=== PATIENT | male | born 1955 | race Caucasian/White ===

== ENCOUNTER 2023-08-15 15:52 | Emergency (ER) | payer BC, SELFPAY ==
--- NOTE | 2023-08-15 15:57 | ED.URI ---
HPI - URI/Sore Throat General Chief Complaint: Upper Respiratory Infection Stated Complaint: cough Time Seen by Provider: 08/15/23 15:57 Source: patient Mode of arrival: ambulatory Limitations: no limitations History of Present Illness HPI Narrative: Patient is a 5-year-old male who presents with 2-3 weeks of dry persistent cough. States he still is able to sleep at night. Denies any shortness of breath or chest pain. Denies any fever, chills, nausea, vomiting, diarrhea. Has not been taking anything for symptoms. Does have history of pneumonia. Related Data Home Medications Medication Instructions Recorded Confirmed gabapentin 600 mg tablet mg 08/15/23 Allergies Allergy/AdvReac Type Severity Reaction Status Date / Time No Known Allergies Allergy Verified 08/15/23 16:10 Review of Systems Review of Systems: All systems reviewed & are unremarkable except as noted in HPI and below Constitutional: Constitutional: Denies body ache(s), Denies chills, Denies fatigue, Denies fever(s), Denies headache(s), Denies malaise and Denies weakness Eyes: Eyes: Denies blurry vision, Denies itchy eyes and Denies loss of vision ENT: Denies otalgia, Denies headache(s), Denies nasal congestion, Denies sinus pain and Denies sore throat Cardiovascular: Cardiovascular: Denies chest pain, Denies irregular heart rhythm and Denies dyspnea Respiratory: Respiratory: Reports cough and Denies dyspnea Gastrointestinal: Gastrointestinal: Denies abdominal pain, Denies diarrhea, Denies nausea and Denies vomiting Musculoskeletal: Musculoskeletal: Denies back pain, Denies myalgias and Denies arthralgias Integumentary/Breasts: Skin/Breast: Denies pruritus and Denies rash Neurologic: Denies headache(s), Denies loss of vision and Denies weakness Psychiatric: Psychiatric: Reports no additional psychiatric complaints Endocrine: Endocrine: Denies fatigue Allergic/Immunologic: Allergic/Immunologic: Denies itchy eyes PMFSH Comments At time of signature, agree with nursing past medical, surgical, social and family history. There is no relevant family history pertinent to the presenting complaint. Exam Const: General: cooperative, healthy appearing, comfortable, no acute distress and well nourished Nutritional Appearance: well nourished Orientation/consciousness: patient oriented x3 Limitations: no limitations HENMT: Head: normal to inspection, normocephalic and atraumatic Ears: hearing grossly normal bilaterally, external ears normal, TM's normal bilaterally, EAC's normal and no periauricular adenopathy Face/Nose/Sinus: Normal external nose present, Normal nasal mucous membranes and turbinates present, normal facial exam, sinuses nontender and face symmetric Face and sinus: normal facial exam, sinuses nontender and face symmetric Mouth: Yes Normal oral and palatal mucosa present, Yes lip normal, Yes tongue normal, Yes Normal salivary glands and ducts present, Yes oropharynx normal and Yes moist mucous membranes Teeth and gingiva: dentition normal Throat: posterior oropharynx normal, tonsils normal and uvula midline Eyes: General: appearance normal, both eyes and all related structures Alignment and Position: alignment normal and position normal Periorbital: periorbital findings normal Eyelids: eyelids normal Pupils: Equal, round and reactive pupils present Neck: Neck: normal visual inspection, full ROM, no lymphadenopathy and supple Chest: Chest palpation & inspection: normal inspection of the chest and normal palpation of entire chest wall Resp: Effort & Inspection: normal respiratory effort and able to speak in complete sentences Auscultation: clear to auscultation bilaterally, no crackles, no rales, no rhonchi and no wheezes Cardio: Rate: regular rate Rhythm: regular rhythm Heart sounds: S1 normal heart sound present and S2 normal heart sound present GI: Inspection: normal to inspection Skin: General skin exam: normal color and no
[2023-08-15 16:09] VITALS: BP 126/75; PULSE 73; RESP 18; TEMP 36.8; O2SAT 97
[2023-08-15 16:11] VITALS: BP 126/75; PULSE 73; RESP 18; TEMP 36.8; O2SAT 97
== END 2023-08-15 16:23 | disposition home or self-care (01) ==
PROVIDERS: Emergency Provider Nurse Practitioner Family
DX: J20.9 Acute bronchitis, unspecified (principal)
CPT/HCPCS: 99213; G0463

== ENCOUNTER 2025-05-26 09:32 | Day surgery (SDC) | payer BC, SELFPAY ==
[2025-05-06 15:54] VITALS: BMI 28.0
[2025-05-26 10:24] VITALS: BP 134/80; PULSE 99; RESP 19; TEMP 36.3; O2SAT 99
[2025-05-26] MEDS: LACTATED RINGERS 1,000 ML 150 ML IV CONT (10:39)
--- NOTE | 2025-05-26 10:44 | WPDANESEPPF ---
Anes - Initial Pre Proc Eval Procedure: Operation Date: 05/26/25 13:30 Proposed Procedures p Screening Colonoscopy - Faisal Montano MD Date/Time: 05/26/25 10:44 Surgeon: Faisal Montano MD Pre Op Diagnosis: Encounter for screening for malignant neoplasm of Patient Data Age: 70 Gender: M Height: 1.78 m Weight: 87.9 kg Last Vital Signs Temp 36.3 C L 05/26/25 10:24 Pulse 99 05/26/25 10:24 Resp 19 05/26/25 10:24 BP 134/80 05/26/25 10:24 Pulse Ox 99 05/26/25 10:24 O2 Del Method Room Air 05/26/25 10:24 Allergies Allergy/AdvReac Type Severity Reaction Status Date / Time No Known Allergies Allergy Verified 05/26/25 10:22 Home Medications ?Medication ?Instructions ?Recorded ?Confirmed ?Type gabapentin 600 mg tablet 600 mg PO TID 30 days #90 tabs 08/15/23 05/06/25 Rx Patient hx anesthesia problems: none Family hx anesthesia problems: none Results Review: All pre-operative results and documents have been reviewed as part of the pre-operative evaluation. [facility] Past Medical History Medical History Neuropathy Surgical History Surgical History History of knee surgery right knee Meniscus repair History of hernia repair History of prostate surgery Social History Social History Smoking status: Never smoker Alcohol intake: never Substance use: never Lack of Transportation: No Lack of Food: Never True Current Housing: I Have Housing Concerned About Future Housing: No Difficulty Paying Gas/Electric Bills: No Difficulty Paying for Meds: No Currently Unemployed: No Education: Master's Degree or Higher Difficulty w/ Childcare or Family Care: No Living arrangements: with family Additional living arrangements comments: with sp Anes - Eval Final PreProcedure Day of Procedure 05/26/25 10:44 Patient weight: overweight Heart: regular rate and rhythm Lungs: clear to auscultation Airway: Mallampati scale class II Neurological: alert and oriented Last oral intake: >/= 8 hours ASA classification: II Emergent: no Anesthetic plan: proceed Anesthesia type and monitoring: general GIVS and standard monitoring Results Review: All pre-operative results and documents have been reviewed as part of the pre-operative evaluation. Informed Consent: The patient's anesthetic plan and its attendant risks and benefits were discussed with the patient/family/POA. Questions were solicited and answers provided to the satisfaction of the patient/family/POA.
--- NOTE | 2025-05-26 11:30 | P.HP_ITS ---
H&P: HPI History of Present Illness Date/Time: 05/26/25 11:30 Chief Complaint: History of colon polyps Narrative: The patient has a history of colonic polyps, the last colonoscopy was Review of Systems Review of Systems: All systems reviewed & are unremarkable except as noted in HPI and below PMFSH Past Medical History Medical History Neuropathy Surgical History Surgical History History of knee surgery right knee Meniscus repair History of hernia repair History of prostate surgery Social History Social History Smoking status: Never smoker Alcohol intake: never Substance use: never Lack of Transportation: No Lack of Food: Never True Current Housing: I Have Housing Concerned About Future Housing: No Difficulty Paying Gas/Electric Bills: No Difficulty Paying for Meds: No Currently Unemployed: No Education: Master's Degree or Higher Difficulty w/ Childcare or Family Care: No Living arrangements: with family Additional living arrangements comments: with sp Meds Home Medications and Allergies Home Medications ?Medication ?Instructions ?Recorded ?Confirmed ?Type gabapentin 600 mg tablet 600 mg PO TID 30 days #90 ta bs 08/15/23 05/06/25 Rx Allergies Allergy/AdvReac Type Severity Reaction Status Date / Time No Known Allergies Allergy Verified 05/26/25 10:22 Vital Signs Vital Signs - 24 hr 05/26/25 10:24 Temperature 97.4 F L Pulse Rate 99 Respiratory Rate 19 Blood Pressure 134/80 Pulse Oximetry 99 Oxygen Delivery Room Air Exam Const: General: cooperative and healthy appearing Resp: Effort & Inspection: normal respiratory effort and able to speak in complete sentences Auscultation: clear to auscultation bilaterally Cardio: Rate: regular rate Rhythm: regular rhythm GI: Inspection: normal to inspection GI Palp: No No hepatosplenomegaly present Auscultation: normal bowel sounds Rectal Exam: deferred Skin: General skin exam: normal color Psych: Appearance: grossly normal Mental Status: mental status grossly normal Assessment and Plan Assessment and plan (1) History of colonic polyps: Code(s): Z86.0100 - Personal history of colon polyps, unspecified Status: Acute Assessment and Plan: The patient is deemed a good candidate for the procedure. Consent signed. Will proceed.
--- NOTE | 2025-05-26 11:51 | S_PTH ---
PATIENT: Anuj Patrick LOC: [facility] #:[id number] AGE/SX: 70/M ROOM: RE05/26/[address]: Faisal Montano MD : 1955 BED: DIS: 05/26/2025 SPEC #: [id number] RECD: 05/26/25 13:07 STATUS: SHAYLA REJose Rafael #: [id number] JAN: 05/26/25 11:[address]: Faisal Montano DEPT: [facility] Surgical RECD BY: Lucrecia George ENTERED: 05/26/25 13:08 SP TYPE: Surgical OTHR DR: Lucinda Melendez, GLASS DEPOSITION TENDER Tissues: A - Colon Polypectomy Procedures: Hematoxylin and Eosin Stain Gross and Microscopic Level 4
[2025-05-26 11:52] VITALS: BP 107/59; PULSE 99; RESP 15; O2SAT 98
[2025-05-26 12:02] VITALS: BP 114/73; PULSE 75; RESP 20; O2SAT 100
[2025-05-26 12:12] VITALS: BP 120/78; PULSE 71; RESP 19; O2SAT 100
== END 2025-05-26 12:25 | disposition home or self-care (01) ==
PROVIDERS: PCP Nurse Practitioner; Referring Provider Nurse Practitioner; Visit Provider Internal Medicine Gastroenterology
PROC: 0DJD8ZZ Inspection of Lower Intestinal Tract, Via Natural or Artificial Opening Endoscopic (ICD-10-PCS; CPT 45378; principal; 2025-05-26 13:30)
DX: Z12.11 Encounter for screening for malignant neoplasm of colon (principal); K63.5 Polyp of colon
CPT/HCPCS: 45385; 88305; J2704; J7120

== ENCOUNTER 2025-06-02 17:41 | Observation (INO) | payer BC, SELFPAY ==
--- NOTE | ~2025-06-02 | MR_ITS ---
EXAMINATION: MR brain/brain stem wo/w con DATE: 06/03/2025 17:09 INDICATION: Left-sided visual deficits. TECHNIQUE: Magnetic resonance imaging (MRI) of the brain and brainstem was performed without and with 19 mL Multihance intravenous contrast. Sequences included sagittal and axial T1-weighted SE, axial diffusion-weighted FS SE, axial T2*-weighted GRE, axial T2-weighted FLAIR, and axial T2-weighted FSE. Postcontrast axial and coronal T1-weighted SE was obtained. Apparent diffusion coefficient (ADC) maps were created. COMPARISON: Head CT and CT angiogram dated 06/02/2025 FINDINGS: Tiny focus of restricted diffusion with associated increased T2 signal at the left lentiform nucleus consistent with an acute lacunar infarct. No intracranial hemorrhage or abnormal intracranial mass lesion. There is a nonspecific 3 mm focus of enhancement in the kraus matter along the deep margin of a sulcus in the left parieto-occipital region. No associated restricted diffusion, increased T2 signal or susceptibility artifact. There are no intraparenchymal signal abnormalities seen on the other pulse sequences. The ventricles are symmetric and normal in size. There are no abnormal extra-axial fluid collections. Flow voids are seen in the cerebral arteries on the T2-weighted sequences consistent with their expected patency. Mild mucosal thickening the bilateral ethmoid sinuses. Visualized orbits and soft tissues are unremarkable. IMPRESSION: 1. Very small acute lacunar infarct in the left lentiform nucleus. 2. Nonspecific single tiny 3 mm focus of enhancement in the kraus matter the deep margin of a sulcus in the left parieto-occipital region. Differential would include developmental venous anomaly, subacute infarction, demyelinating disease such as multiple sclerosis, infection or malignancy. Would favor the former given the absence of restricted diffusion or associated increased T2 signal/edema. Reviewed, dictated and finalized at location A. E DESIGNER IMPRESSION: 1. Very small acute lacunar infarct in the left lentiform nucleus. 2. Nonspecific single tiny 3 mm focus of enhancement in the kraus matter the abby p margin of a sulcus in the left parieto-occipital region. Differential would i nclude developmental venous anomaly, subacute infarction, demyelinating disease such as multiple sclerosis, infection or malignancy. Would favor the former gi ashanti the absence of restricted diffusion or associated increased T2 signal/edema .
--- NOTE | ~2025-06-02 | CT_ITS ---
EXAMINATION: CT angiogram brain, carotids: DATE: 06/02/2025 INDICATION: 70-year-old carotid blockage. Visual disturbance. TECHNIQUE: Initial precontrast CT head was performed followed by CT angiogram of head and neck with 100 cc of contrast. Multiplanar and 3-D reconstruction obtained. COMPARISON: None. FINDINGS: No acute bleed on the precontrast CT. No space-occupying lesions or ventriculomegaly. No midline shift. Vertebral arteries are patent in the neck on both sides. Dominant size of the left vertebral artery. Mild atherosclerotic disease predominantly noncalcified plaque at the carotid bulbs on both sides producing less than 50% diameter narrowing. No evidence of hemodynamically significant disease of the common and internal carotid arteries in the neck. Vertebral basilar arteries are patent at the skull base. No obstruction of the intracranial portion of internal carotid arteries are seen. Posterior cerebral arteries are patent on both sides. Right posterior communicating artery is visualized. Anterior cerebral arteries are patent. Middle cerebral arteries are patent. Dural venous sinuses are patent. IMPRESSION: 1. No acute intracranial findings in the precontrast CT scan. 2. Patent vertebral arteries in the neck. Mild atherosclerotic disease producing less than 50% diameter narrowing of the internal carotid arteries on both sides. 3. No obstructive lesions of major arteries of [place]. Dural venous sinuses are patent. Reviewed, dictated and finalized at location T. ITIONING MACHINE OPERATOR IMPRESSION: 1. No acute intracranial findings in the precontrast CT scan. 2. Patent vertebral arteries in the neck. Mild atherosclerotic disease producin g less than 50% diameter narrowing of the internal carotid arteries on both gregory es. 3. No obstructive lesions of major arteries of [place]. Dural venous s inuses are patent.
[2025-06-02 17:43] VITALS: BP 157/85; PULSE 67; RESP 16; TEMP 36.4; O2SAT 100
--- NOTE | 2025-06-02 18:31 | ED.EYEPROB ---
HPI - Eye Problem General Chief complaint: Eye Problems <Ela Campos APRN - Last Filed: 06/02/25 22:40> Stated complaint: occlusion to retina <Ela Campos APRN - Last Filed: 06/02/25 22:40> Time Seen by Provider: 06/02/25 18:06 <Ela Campos APRN - Last Filed: 06/02/25 22:40> History of Present Illness HPI Narrative: Patient is 70-year-old male who presents to the ER with left eye blurriness. He reports his blurriness started this morning around 9:00 a.m.. Patient reports he went to the eye doctor who advised him to come to the ER for further evaluation. He reports his eye doctor had concerns for an occlusion. 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 He reports he does not have a primary care provider at this time. Patient denies any history of diabetes or hypertension and takes no daily medication. He denies any headache, dizziness, nausea/vomiting, or numbness/tingling in his extremities. <Ela Campos APRN - Last Filed: 06/02/25 22:40> Related Data Home medications: Home Medications ?Medication ?Instructions ?Recorded ?Confirmed ?Last Taken ?Type No Home Medications 06/03/25 06/03/25 Unknown History <Ela Campos APRN - Last Filed: 06/02/25 22:40> Allergies/adverse reactions: Allergies Allergy/AdvReac Type Severity Reaction Status Date / Time No Known Allergies Allergy Verified 06/03/25 00:41 <Ela Campos APRN - Last Filed: 06/02/25 22:40> Review of Systems Review of Systems: All systems reviewed & are unremarkable except as noted in HPI and below <Ela Campos APRN - Last Filed: 06/02/25 22:40> PMFSH Past Medical History Medical History: Medical History Neuropathy <Ela Campos APRN - Last Filed: 06/02/25 22:40> Surgical History Surgical History: Surgical History History of knee surgery right knee Meniscus repair History of hernia repair History of prostate surgery <Ela Campos APRN - Last Filed: 06/02/25 22:40> Social History Social History: Social History Smoking status: Never smoker Alcohol intake: never Substance use: never Lack of Transportation: No Lack of Food: Never True Current Housing: I Have Housing Concerned About Future Housing: No Difficulty Paying Gas/Electric Bills: No Difficulty Paying for Meds: No Currently Unemployed: No Education: Master's Degree or Higher Difficulty w/ Childcare or Family Care: No Living arrangements: with family Additional living arrangements comments: with sp <Ela Campos APRN - Last Filed: 06/02/25 22:40> Exam Narrative: GENERAL: Well appearing, well-nourished, non-toxic, in no acute distress. HEAD: Normocephalic, atraumatic. NECK: Supple. No adenopathy, no masses. RESPIRATORY: Airway patent, respirations nonlabored. Clear to auscultation bilaterally, no rales, rhonchi, wheezing. CARDIOVASCULAR: Regular rate and rhythm without murmurs, rubs, or gallops. Peripheral pulses 2+ and equal bilaterally. ABDOMINAL: Soft, nontender, nondistended, no hepatosplenomegaly. Normoactive BS. MUSCULOSKELETAL: Moves all extremities. Strength/ROM intact without gross deformities. SKIN: Warm, dry, normal color. No rashes. NEURO: A&O X3. Speech clear. Cranial nerves II-XII intact. No ataxic movements. PSYCHIATRIC: Appropriate mood and affect. Normal interaction. <Ela Campos APRN - Last Filed: 06/02/25 22:40> Course ASSURANCE ENGINEER/PA Physician Supervision This visit was performed by both a physician and an APC. I performed all aspects of the MDM as documented. <Giorgi Osborne DO - Last Filed: 06/03/25 00:44> Vital Signs Vital signs: Vital Signs Temperature 97.6 F 06/02/25 17:43 Pulse Rate 67 06/02/25 17:43 Respiratory Rate 16 06/02/25 17:43 Blood Pressure 157/85 H 06/02/25 17:43 Pulse Oximetry 100 06/02/25 17:43 Oxygen Delivery Room Air 06/02/25 17:43 Temperature 96.6 F L 06/03/25 00:43 Pulse Rate 58 L 06/03/25 00:43 Respiratory Rate 16 06/03/25 00:43 Blood Pressure 135/78 06/03/25 00:43 Pulse Oximetry 98 06/03/25 00:43 Oxygen Delivery Room Air 06/02/25 17:43 <Ela Campos, PRIMER WATERPROOFING MACHINE ADJUSTER - Last Filed: 06/02/25 22:40> Vital Signs Temperature 97.6 F 06/02/25 17:43 Pulse Rate 67 06/02/25 17:43 Respiratory Rate 16 06/02/25 17:43 Blood Pressure 157/85 H 06/02/25 17:43 Pulse Oximetry 100 06/02/25 17:43 Oxygen Delivery Room Air 06/02/25 17:43 Temperature 96.6 F L 06/03/25 00:43 Pulse Rate 58 L 06/03/25 00:43 Respiratory Rate 16 06/03/25 00:43 Blood Pressure 135/78 06/03/25 00:43 Pulse Oximetry 98 06/03/25 00:43 Oxygen Delivery Room Air 06/02/25 17:43 <Giorgi Osborne, DO - Last Filed: 06/03/25 00:44> [facility] MDM Narrative Medical decision making narrative: Patient is 70-year-old male who presents to the ER with left eye blurriness. He reports his blurriness started this morning around 9:00 a.m.. Patient reports he went to the eye doctor who advised him to come to the ER for further evaluation. He reports his eye doctor had concerns for an occlusion. 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 He reports he does not have a primary care provider at this time. Patient denies any history of diabetes or hypertension and takes no daily medication. He denies any headache, dizziness, nausea/vomiting, or numbness/tingling in his extremities. Labs Ordered: CBC, CMP, UA, UDS, PTT, INR, ethanol Imaging Ordered: CTA brain/carotid Medications Ordered: Aspirin PO Results: Pt's CT scan indicates No acute intracranial findings in the precontrast CT scan. 2. Patent vertebral arteries in the neck. Mild atherosclerotic disease producing less than 50% diameter narrowing of the internal carotid arteries on both sides. 3. No obstructive lesions of major arteries of [place]. Dural venous sinuses are patent. Diagnosis: TIA, L visual changes Risks: HEART score, PECARN score, CURB-65 score Consults: 2214- Spoke with Dr. Love, who advised pt should be admitted to the hospital for further evaluation and treatment. He requests pt have an MRI and ECHO performed. 2229- Spoke with hospitalist, Dr. Mclain, who is in agreement with plan for admission. Pt will be admitted to the med/surg floor with tele. He will have an MRI, ECHO, lipid panel, and neurology consult ordered. MDM: Upon further discussion, pt reports his symptoms actually started last night. Results of imaging and lab work shared with patient. It was advised patient be admitted to the hospital for further evaluation and treatment. Patient verbalized understanding and are in agreement with plan. <Ela Campos APRN - Last Filed: 06/02/25 22:40> Differential Diagnosis Differential Diagnosis: TIA, CVA, hypertension, visual changes <Ela Campos APRN - Last Filed: 06/02/25 22:40> Lab Data [facility] Lab Attestation statement: I personally reviewed the patient's lab results. <Ela Campos APRN - Last Filed: 06/02/25 22:40> Result diagrams: 06/02/25 18:57 06/02/25 18:57 <Ela Campos APRN - Last Filed: 06/02/25 22:40> Labs: Lab Results 06/02/25 06/02/25 Range/Units 18:57 21:15 WBC 6.7 (4.5-10.0) K/mm3 RBC 4.51 L (4.6-6.20) M/mm3 Hgb 13.2 L (14.0-18.0) g/dL Hct 39.9 L (42.0-52.0) % MCV 88.5 (80-100) fl MCH 29.3 (26-34) pg MCHC 33.1 (32-36) g/dl RDW 12.2 (11.5-14.5) % Plt Count 189 (150-375) k/mm3 MPV 10.3 (7.4-10.4) fl Immature Gran % (Auto) 0.3 (0-0.5) % Neut % (Auto) 60.5 (45.5-73.1) % Lymph % (Auto) 26.7 (18.3-44.2) % [place] % (Auto) 9.9 H (2.6-8.5) % Eos % (Auto) 2.2 (0-4.4) % Baso % (Auto) 0.4 (0.2-1.2) % Lymph # (Auto) 1.79 (0.9-3.2) K/mm3 [place] # (Auto) 0.7 H (0.1-0.6) K/mm3 Eos # (Auto) 0.2 (0-0.3) K/mm3 Baso # (Auto) 0.0 (0.0-0.1) K/mm3 Abs Immat Gran (auto) 0.02 (0.00-0.031) K/mm3 Absolute Neuts (auto) 4.1 (1.3-6.7) K/mm3 Absolute Nucleated RBC 0.000 (0.0-0.012) K/mm3 Nucleated RBC % 0.0 (0.0-0.2) % PT 13.4 (11.1-14.7) Seconds INR 1.0 APTT 27.4 (22.3-36.8) Seconds Sodium 139 (137-145) mmol/L Potassium 4.3 (3.4-5.0) mmol/L Chloride 106 (98-107) mmol/L Carbon Dioxide 27 (22-30) mmol/L Anion Gap 6 (4-12) mmol/L BUN 21 H (9-20) mg/dL Creatinine 1.10 (0.7-1.3) mg/dL Estim Creat Clear Calc 56 ml/min Estimated GFR > 60 (59 - ) Glucose 108 (65-110) mg/dL Calcium 9.1 (8.4-10.2) mg/dL Total Bilirubin 0.3 (0.2-1.3) mg/dL AST 32 (17-59) U/L ALT 28 (6-50) U/L Alkaline Phosphatase 76 (38-126) U/L Total Protein 7.4 (6.3-8.2) g/dL Albumin 4.1 (3.5-5.1) g/dL Triglycerides 222 H (<150) mg/dL Cholesterol 194 (0-200) mg/dL LDL Cholesterol Direct 118 mg/dL HDL Direct 30 mg/dL Urine Color Yellow (Yellow) Urine Appearance Clear (Clear) Urine pH 5.0 (5.0-9.0) Ur Specific [place] > 1.045 H (1.001-1.035) Urine Protein Negative (Negative) mg/dL Urine Glucose (UA) Negative (Negative) mg/dL Urine Ketones Negative (Negative) mg/dL Ur Blood (Man) Negative (Negative) Urine Nitrate Negative (Negative) Urine Bilirubin Negative (Negative) Urine Urobilinogen 0.2 (<2.0) mg/dL Leukocyte Esterase Rfl Negative (Negative) RONNA/UL Urine Opiates Screen Negative (Negative) Urine Methadone Screen Negative (Negative) Ur Barbiturates Screen Negative (Negative) Ur Phencyclidine Scrn Negative (Negative) Ur Amphetamine Screen Negative (Negative) U Benzodiazepines Scrn Negative (Negative) Urine Cocaine Screen Negative (Negative) U Cannabinoids Screen Negative (Negative) Ethyl Alcohol < 10 (<10) mg/dL <Ela Campos, PRIMER WATERPROOFING MACHINE ADJUSTER - Last Filed: 06/02/25 22:40> Lab Results 06/02/25 06/02/25 Range/Units 18:57 21:15 WBC 6.7 (4.5-10.0) K/mm3 RBC 4.51 L (4.6-6.20) M/mm3 Hgb 13.2 L (14.0-18.0) g/dL Hct 39.9 L (42.0-52.0) % MCV 88.5 (80-100) fl MCH 29.3 (26-34) pg MCHC 33.1 (32-36) g/dl RDW 12.2 (11.5-14.5) % Plt Count 189 (150-375) k/mm3 MPV 10.3 (7.4-10.4) fl Immature Gran % (Auto) 0.3 (0-0.5) % Neut % (Auto) 60.5 (45.5-73.1) % Lymph % (Auto) 26.7 (18.3-44.2) % [place] % (Auto) 9.9 H (2.6-8.5) % Eos % (Auto) 2.2 (0-4.4) % Baso % (Auto) 0.4 (0.2-1.2) % Lymph # (Auto) 1.79 (0.9-3.2) K/mm3 [place] # (Auto) 0.7 H (0.1-0.6) K/mm3 Eos # (Auto) 0.2 (0-0.3) K/mm3 Baso # (Auto) 0.0 (0.0-0.1) K/mm3 Abs Immat Gran (auto) 0.02 (0.00-0.031) K/mm3 Absolute Neuts (auto) 4.1 (1.3-6.7) K/mm3 Absolute Nucleated RBC 0.000 (0.0-0.012) K/mm3 Nucleated RBC % 0.0 (0.0-0.2) % PT 13.4 (11.1-14.7) Seconds INR 1.0 APTT 27.4 (22.3-36.8) Seconds Sodium 139 (137-145) mmol/L Potassium 4.3 (3.4-5.0) mmol/L Chloride 106 (98-107) mmol/L Carbon Dioxide 27 (22-30) mmol/L Anion Gap 6 (4-12) mmol/L BUN 21 H (9-20) mg/dL Creatinine 1.10 (0.7-1.3) mg/dL Estim Creat Clear Calc 56 ml/min Estimated GFR > 60 (59 - ) Glucose 108 (65-110) mg/dL Calcium 9.1 (8.4-10.2) mg/dL Total Bilirubin 0.3 (0.2-1.3) mg/dL AST 32 (17-59) U/L ALT 28 (6-50) U/L Alkaline Phosphatase 76 (38-126) U/L Total Protein 7.4 (6.3-8.2) g/dL Albumin 4.1 (3.5-5.1) g/dL Triglycerides 222 H (<150) mg/dL Cholesterol 194 (0-200) mg/dL LDL Cholesterol Direct 118 mg/dL HDL Direct 30 mg/dL Urine Color Yellow (Yellow) Urine Appearance Clear (Clear) Urine pH 5.0 (5.0-9.0) Ur Specific [place] > 1.045 H (1.001-1.035) Urine Protein Negative (Negative) mg/dL Urine Glucose (UA) Negative (Negative) mg/dL Urine Ketones Negative (Negative) mg/dL Ur Blood (Man) Negative (Negative) Urine Nitrate Negative (Negative) Urine Bilirubin Negative (Negative) Urine Urobilinogen 0.2 (<2.0) mg/dL Leukocyte Esterase Rfl Negative (Negative) RONNA/UL Urine Opiates Screen Negative (Negative) Urine Methadone Screen Negative (Negative) Ur Barbiturates Screen Negative (Negative) Ur Phencyclidine Scrn Negative (Negative) Ur Amphetamine Screen Negative (Negative) U Benzodiazepines Scrn Negative (Negative) Urine Cocaine Screen Negative (Negative) U Cannabinoids Screen Negative (Negative) Ethyl Alcohol < 10 (<10) mg/dL <Giorgi Osborne, - Last Filed: 06/03/25 00:44> Imaging Data Attestation: I personally reviewed and interpreted this imaging study as follows: <Ela Campos, PRIMER WATERPROOFING MACHINE ADJUSTER - Last Filed: 06/02/25 22:40> Radiologist's impression: ITS Impressions Head/Neck CTA 06/02/25 19:43 IMPRESSION: 1. No acute intracranial findings in the precontrast CT scan. 2. Patent vertebral arteries in the neck. Mild atherosclerotic disease producing less than 50% diameter narrowing of the internal carotid arteries on both sides. 3. No obstructive lesions of major arteries of [place]. Dural venous sinuses are patent. <Ela Campos, PRIMER WATERPROOFING MACHINE ADJUSTER - Last Filed: 06/02/25 22:40> ITS Impressions Head/Neck CTA 06/02/25 19:43 IMPRESSION: 1. No acute intracranial findings in the precontrast CT scan. 2. Patent vertebral arteries in the neck. Mild atherosclerotic disease producing less than 50% diameter narrowing of the internal carotid arteries on both sides. 3. No obstructive lesions of major arteries of [place]. Dural venous sinuses are patent. <Giorgi Osborne DO - Last Filed: 06/03/25 00:44> Discharge Plan Discharge Clinical Impression: TIA (transient ischemic attack), Changes in vision <Ela Campos, PRIMER WATERPROOFING MACHINE ADJUSTER - Last Filed: 06/02/25 22:40> Patient Disposition: Still a Patient <Ela Campos APRN - Last Filed: 06/02/25 22:40> Condition: Stable <Ela Campos APRN - Last Filed: 06/02/25 22:40>
--- NOTE | 2025-06-02 18:38 | ECG_ITS ---
Test Date: 2025-06-02 18:55:34 Measurements Intervals [place] Rate: 66 P: 52 IL: 188 QRS: 46 QRSD: 105 T: 6 QT: 378 QTc: 397 Interpretive Statements SINUS RHYTHM INCOMPLETE RIGHT BUNDLE BRANCH BLOCK MINIMAL Q WAVES- INFERIOR LEADS BASELINE ARTIFACT- I, II, AVR BORDERLINE ECG No previous ECG available for comparison Electronically Signed On 06-02-2025 19:54:09 [employer]IVER CAPTAIN by Vargas Dillon D.O.
[2025-06-02 19:13] LABS: Hematocrit 39.9 % (42.0-52.0); Hemoglobin 13.2 g/dL (14.0-18.0); Immature Granulocyte Percent A 0.3 % (0-0.5); Lymphocytes Absolute Auto 1.79 K/mm3 (0.9-3.2); Mean Corpuscular HGB Conc 33.1 g/dl (32-36); Mean Corpuscular Hemoglobin 29.3 pg (26-34); Mean Corpuscular Volume 88.5 fl (80-100); Nucleated Red Blood Cells Absolute Auto 0.000 K/mm3 (0.0-0.012); Nucleated Red Blood Cells Perc 0.0 % (0.0-0.2); Platelet Count Result 189 k/mm3 (150-375); Red Blood Count 4.51 M/mm3 (4.6-6.20); White Blood Count 6.7 K/mm3 (4.5-10.0)
[2025-06-02 19:23] LABS: INR 1.0; Prothrombin Time 13.4 Seconds (11.1-14.7)
[2025-06-02 19:24] LABS: Partial Thromboplastin Time 27.4 Seconds (22.3-36.8)
[2025-06-02 19:25] LABS: Alanine Aminotransferase 28 U/L (6-50); Albumin Level 4.1 g/dL (3.5-5.1); Alkaline Phosphatase 76 U/L (38-126); Anion Gap 6 mmol/L (4-12); Aspartate Amino Transferase 32 U/L (17-59); Bilirubin,Total 0.3 mg/dL (0.2-1.3); Blood Urea Nitrogen 21 mg/dL (9-20); Calcium 9.1 mg/dL (8.4-10.2); Carbon Dioxide 27 mmol/L (22-30); Chloride 106 mmol/L (98-107); Estimated CRCL calculation 56 ml/min; Estimated Glomerular Filt Rate > 60; Glucose 108 mg/dL (65-110); Potassium 4.3 mmol/L (3.4-5.0); Sodium 139 mmol/L (137-145); Total Protein 7.4 g/dL (6.3-8.2)
--- OUTSIDE RECORDS SUMMARY | 2025-06-02 21:12 | XMS_ITS | Patient Health Record ---
Author Organization [facility] Address [address] [facility] [address] [place] [address] Care Team Providers Care Nutrition Faculty Member Name Role Phone Mariposa Gray MD Primary Care Provider Mariposa Francis Unavailable [phone] ALLERGIES No Known Allergies REASON FOR REFERRAL No Information MEDICATIONS Medication SIG (Take, Route, Frequency, Duration) Notes Start Date End Date Status Gabapentin 600 MG TAKE ONE TABLET BY MOUTH THREE TIMES A DAY FOR 90 DAYS Orally three times daily for 30 days Active Atorvastatin Calcium 20 mg 1 tablet Orally Once a day for 90 Active Co Q 10 100 MG 1 capsule with a moraima l Orally Once a day Not-Taking Vitamin B12 100 MCG as directed Orally Active Aspirin 81 81 MG 1 tablet Orally Once a day for 30 day(s) Active Vitamin D-3 1000 UNIT 1 capsule Orally O nce a day Active IMMUNIZATIONS Vaccine Route Administration Date Status Comme nts FLU VACCINE NO PRESERV 3 & > Unknown 08/15/2016 Refused Fluvirin IM Intramuscular 03/26/2017 Administered Fluzone high dose (non Medicare) IM Intramuscular 06/26/2018 Administered Influenza HIST Unknown 03/26/2017 Administered Pneumococcal poly (Pneumovax 23) IM IM Intramuscular 12/01/2019 Administered PREVNAR 13 Unknown 08/15/2016 Refused PREVNAR 13 IM Intramuscular 11/12/2016 Administered Tdap IM Unknown 08/15/2011 Administered z Flu (Afluria IIV4 0.5ml single dose 3yr+) IM Intramuscular 04/27/2020 Administered z Flu (Flublok RIV4 0.5ml single dose syringe 18y+) IM Intramuscular 07/29/2019 Administered z Flu (Fluzone High Dose IIV4-HD 0.7 ml single dose 65+) IM Intramuscular 06/12/2022 Administered Zostavax Unknown 08/15/2016 Refused Zostavax SC Subcutaneous 11/12/2016 Administered Zoster Recombinant (Shingrix) IM IM Intramuscular 05/13/2020 Administered Zoster Recombinant (Shingrix) IM IM Intramuscular 08/15/2020 Administered SOCIAL HISTORY Tobacco Use: Social History Observation Description Date Details (start date - stop date) Never Smoker NA - NA Sex Assigned At : Social History Observation Description Sex Assigned At Unknown Smoking Question Answer Notes Are you a: never smoked Patient counseled on the reina gers of tobacco use and/or urged to quit: 03/26/2017 Audit-C Adult Question Answer Notes How often do you have a drink containing alcohol ? Never 0 points How many drinks did you have on a typical day when you were drinking? 1 or 2 - 0 points How often did you have 6 or more drinks on one o ccasion? 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) Active confirmed 412919173 Problem History of prostate cancer (Z85.46) Active confirmed 908164410 Problem Hyperparathyroidism (E21.3) Active confirmed 79271117 Problem Hypertriglyceridemia (E78.1) Active confirmed 261484220 Problem Prostate cancer (C61) Active confirmed Malignant tumor of prostate (125747829) Problem Hypoglycemia (E16.2) Active confirmed 3 11288143 Problem TIA (transient ischemic attack) (G45.9) Active confirmed 462649298 Problem Arterial insufficiency (I77.1) Active confirmed 823417709 Problem Stenosis of carotid artery, unspecified laterality (I65.29) Active confirmed 60183912 Problem Bilateral carotid artery stenosis (I65.23) Active confirmed 833204144 Problem Hypercholesterolemia (E78.00) Active confirmed Hypercholestero lemia (39133500) Problem Allergic rhinitis, unspecified seasonality, unspecified trigger (J30.9) Active confirmed 28485002 Problem Complaint of paresthesia (R20.2) Active confirmed 981961419 PLAN OF TREATMENT Pending Test Test Name Order Date URINALYSIS (URINE DIP) 12/01/2019 Hepatitis C Ab 11/12/2016 -CBC With Differential/Platelet* 017 -CBC With Differential/Platelet* 017 PTH, Intact 11/12/2016 Lipid Panel* 03/26/2017 -CMP (Comprehensive Metabolic Panel) 08/2016 -CMP (Comprehensive Metabolic Panel) Lyme IgG/IgM Ab 01/24/2022 US Arterial Low Ext Bilateral W STEPHEN 08/22 US Carotid Arteries Bilateral 06/26/2018 Vitamin B12 12/01/2019 -CBC with differential/platelet 09/25/19 18 -CMP (Comprehensive Metabolic Panel) 08/2017 Lipid Panel 09/24/2017 -Hemoglobin A1C* 09/24/2017 Lipid Panel* 06/26/2018 Lipid Panel* 12/01/2019 Lipid Panel* 08/15/2020 Lipid Panel* 11/14/2020 CMP (COMPREHENSIVE METABOLIC PANEL)* CMP (COMPREHENSIVE METABOLIC PANEL)* CMP (COMPREHENSIVE METABOLIC PANEL)* 02/2020 CMP (COMPREHENSIVE METABOLIC PANEL)* 08/2018 CBC with differential/platelet* 08/15/19 21 CBC with differential/platelet* 04/27/20 20 CBC with differential/platelet* 12/01/19 20 CBC with differential/platelet* 11/15/19 21 CBC (H/H, RBC, INDICES, WBC, PLT) 2018 PSA* 06/26/2018 PSA* 12/01/2019 PSA* 11/14/2020 PSA* 08/15/2020 TSH W/REFLEX TO FT4* 12/01/2019 Insurance Providers Payer Name Payer Address Payer Phone Subscriber Number Group Number Insured Name Patient Relationship to Insured Coverage Start Date Coverage End Date BCBS-MD: [employer] ([employer] [address] [address] [place] [address] [phone] [id number] DOM ESQUEDA Self - patient is the insured 5 MEDICAL (GENERAL) HISTORY Medical History History ICD Code Lyme disease, unspecified A69.20 neuropathy peripheral hypercholesterol prostate cancer 2009 oa right knee colon polyp 12/11- 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
--- OUTSIDE RECORDS SUMMARY | 2025-06-02 21:13 | XMS_ITS | Patient Health Record ---
Author Organization [facility] Address [address] [address] Care Team Providers Care Public Health Specialist Name Role Phone Mariposa Gray MD Primary Care Provider Silvano Pena Unavailable [phone] Reason For Referral No Information Medications Medication SIG (Take, Route, Frequency, Duration) Notes Start Date End Date Status Atorvastatin Calcium 10 MG Tablet Oral 08/28/2018 Active Gabapentin (Once-Daily) 600 MG Tablet Oral *Reorder from Infrafone for eRx and Interaction Alerts* 12/16/2013 Active Social History Social History Additional Details Category Social Info Options Details Migrated Social History Migrated Social History Notes : Patient's occupation : Retired Alcohol Use - no Caffeine Use - yes: 1 cup a day Smoking History: Patient has never smoked. , Number of Children : 0 , NumberOfPreviousMarriages : 0 , Tobacco History : Never Smoked Problems Problem Type SNOMED Code ICD Code Onset Dates Problem Status W/U Status Risk Notes Problem Hyperthyroidism (34174414) Hyperthyroidism (E05.90) 2018 Active confirmed Problem High cholesterol (20608863) High Cholesterol (E78.0) 2018 Active confirmed Problem Essential hypertension (14067821) Hx of HYPERTENSION, ESSENTIAL (I10) 2008 Active confirmed Problem Neuropathy (Hist ory of) (Z86.69) 2018 Active confirmed Problem History of anemia (situation) (613685657) Anemia (History of) (Z86.2) 2018 Active confirmed Problem High blood pressure (23327744) High Blood Pressure (R03.0) 2018 Active confirmed Problem History of hypercholesterolemia (191675564) Hx of HYPERCHOLESTEROLEMIA (E78.0) 2018 Active confirmed Problem History of polyp of colon (840963956) Colon Polyps (History of) (Z86.010) 2018 Active confirmed Problem History of malignant neoplasm of prostate (061875878) Prostate Cancer (History of) (Z85.46) 2018 Active confirmed Plan Of Treatment No Information
--- OUTSIDE RECORDS SUMMARY | 2025-06-02 21:15 | XMS_ITS | Clinical Summary ---
Author Organization [facility] Address [facility] [place] [address] Care Team Providers Care Dental Hygiene Professor Name Role Phone Lucinda Melendez NP Primary Care Provider [phone] Allergies No known active allergies Medications No known medications Active Problems Problem Noted Date Diagnosed Date Prediabetes 11/18/2024 Assessment & Plan (11/18/2024 3:37 PM CDT): Will recheck labs and follow Patient to work on limiting his sugar and processed foods. Patient may benefit from intermittent fasting. Encourage following Hypertriglyceridemia 11/21/2023 Overview (11/18/2024): Noted after patient's office visit he is no longer taking rosuvastatin. He never mentioned to me any side effects with these. Diet is poor. Assessment & Plan (11/18/2024 3:41 PM CDT): Patient is no longer on statin so will recheck at this time and provide further recommendations once back if he will need to go back on a statin. His diet is poor so likely will need to Assessment & Plan (02/03/2024 1:39 PM CDT): Lipid panel improved with use of Rosuvastatin. Is tolerating well without side effects. Encourage following a healthy well balance diet and staying active as well. Obesity (BMI 30-39.9) 11/21/2023 Assessment & Plan (11/18/2024 3:45 PM CDT): Encourage diet and lifestyle changes to assist with weight loss. Encourage working on limiting processed foods, excess surgar and carbs. Neuropathy 11/21/2023 Assessment & Plan (11/18/2024 3:38 PM CDT): Reports is stable. Is not taking gabapentin anymore. Resolved Problems Problem Noted Date Diagnosed Date Resolved Date History of prediabetes 11/21/202311/18 Encounters Date Type Department Care Team Description 05/26/2025 Scan HEALTH INFO SRVCS Scanned, Doc Med Group Colonoscopy Report (SCAN) from Last 3 Months Family History Medical History Relation Comments Diabetes Father Skin cancer Mother Relation Status Comments Father Mother Social History Tobacco Use Types Packs/Day Years Used Date Smoking Tobacco: Never Passive Smoke Exposure: Past Smokeless Tobacco: Never Tobacco Cessation:Counseling Given: No Alcohol Use Standard Drinks/Week Comments Not Currently 0 (1 standard drink = 0.6 oz pur e alcohol) PHQ-2 Answer Date Recorded Patient Health Questionnaire-2 Score 0 07/14/2024 Sex and Gender Information Value Date Recorded Sex Assigned at Male 11/18/2024 2:17 PM CDT Legal Sex Male 12:15 PM CDT Gender Identity Male 11/18/2024 2:17 PM CDT Sexual Orientation Not on file Last Filed Vital Signs Vital Sign Reading Time Taken Comments Blood Pressure 102/70 11/18/2024 2:18 PM CDT Pulse 70 11/18/2024 2:18 PM CDT Temperature 36.3 C (97.4 F) 11/18/2024 2:18 PM CDT Respiratory Rate 18 11/18/2024 2:18 PM CDT Oxygen Saturation 97% 11/18/2024 2:18 PM CDT Inhaled Oxygen Concentration - - Weight 99.8 kg (220 lb) 11/18/2024 2:18 PM CDT Height 177.8 cm (5' 10) 11/18/2024 2:18 PM CDT Body Mass Index 31.57 11/18/2024 2:18 PM CDT Plan of Treatment Upcoming Encounters Date Type Department Care Team (Late Contact Info) Description 06/11/2025 10:00 AM SLUSHER OPERATOR Office Visit [facility] Family Medicine - [place] [address] [facility] [address] [place] [address] Lucinda Melendez, EKTA [address] [place] [address] Health Maintenance Due Date Last Done Comments DTaP, Tdap and Td Vaccines ( 1 - Tdap) 1972 Pneumococcal Vaccine: 50+ Ye ars (1 of 1 - PCV) 2003 Zoster Vaccines (1 of 2) 2003 COVID-19 Vaccine (1 - 2024-2 6 season) 2025 Influenza Adult (#1) 2025 RSV Immunization or 60+ Years (1 - 1-dose 75+ series) 2028 Colorectal Cancer Screening Colonoscopy (10 Years) 05/26/2035 05/26/2025 Hepatitis C Completed 11/29/2023 PHQ-2 (Physician [place]) Completed 07/14/2024 Hepatitis A Vaccines Aged Out No long er eligible based on patient's age to complete this topic Meningococcal B Vaccine Aged Out No l onger eligible based on patient's age to complete this topic Meningococcal Vaccine Aged Out No rachid mack eligible based on patient's age to complete this topic RSV Immunizations Under 20 Months Aged Out No longer eligible based on patient's age to complete this topic Procedures Procedure Name Priority Date/Time Associated Diagnosis Comments COLONOSCOPY GENERIC (SCAN ORDER) 05/26/2025 HEPATITIS C ANTIBODY Routine 11/29/2023 8:13 AM CDT Need for hepatitis C screening test from Last 3 Months or Most Recently Relevant to Health Maintenance Results * COLONOSCOPY GENERIC (SCAN ORDER) (05/26/2025) 05/26/2025 us Doc Med Group Scanned SCANNING Final Resu lt * HEPATITIS C ANTIBODY (11/29/2023 8:13 AM CDT) HEPATITIS C AB NON-REACTI VE NON-REACT [place] 11/29/2023 6:47 PM CDT [facility] Comment: ANTIBODIES TO HCV NOT DETECTED. DOES NOT EXCLUDE THE POSSIBILITY OF EXPOSURE TO HCV. 11/29/2023 8:13 AM CDT Lucinda Melendez [employer] OFFICER LABORATORY Final Res ult [facility] [address] [place] [address], [place] [phone] [id number] from Last 3 Months or Most Recently Relevant to Health Maintenance Insurance [id number] [place] [id number] [facility] Care Teams Dental Hygiene Professor Relationship Specialty Start Date End Date Lucinda Melendez NP [address] [place] [id number] PCP - General NURSE PRACTITIONER 11/21/23
--- OUTSIDE RECORDS SUMMARY | 2025-06-02 21:15 | XMS_ITS | Encounter Summary ---
Author Organization [facility] Address [address] [place] [address] Care Team Providers Care Chronometer Repairer Name Role Phone Lucinda Melendez NP Primary Care Provider [phone] Reason for Visit * Reason Comments Colonoscopy Report (SCAN) Encounter Details Date Type Department Care Team (Late Contact Info) Description 05/26/2025 Scan MG HEALTH INFO SRVCS Scanned, Doc Med Group Colonoscopy Report (SCAN) Social History Tobacco Use Types Packs/Day Years Used Date Smoking Tobacco: Never Passive Smoke Exposure: Past Smokeless Tobacco: Never Alcohol Use Standard Drinks/Week Comments Not Currently 0 (1 standard drink = 0.6 oz pur e alcohol) PHQ-2 Answer Date Recorded Patient Health Questionnaire-2 Score 0 07/14/2024 Sex and Gender Information Value Date Recorded Sex Assigned at Male 11/18/2024 2:17 PM CDT Legal Sex Male 12:15 PM CDT Gender Identity Male 11/18/2024 2:17 PM CDT Sexual Orientation Not on file documented as of this encounter Plan of Treatment Upcoming Encounters Date Type Department Care Team ([facility] Contact Info) Description 06/11/2025 10:00 AM MARINE TRANSPORT PROFESSIONALS Office Visit [facility] [address] [facility] [address] [place] [id number] Lucinda Melendez NP [address] [place], [place] [id number] documented as of this encounter Procedures Procedure Name Priority Date/Time Associated Diagnosis Comments COLONOSCOPY GENERIC (SCAN ORDER) 05/26/2025 documented in this encounter Results * COLONOSCOPY GENERIC (SCAN ORDER) (05/26/2025) 05/26/2025 us Doc Med [facility] Scanned SCANNING Final Resu lt documented in this encounter Visit Diagnoses Not on filedocumented in this encounter Care Teams Chronometer Repairer Relationship Specialty Start Date End Date Lucinda Melendez NP [address] [place] [id number] PCP - General NURSE PRACTITIONER 11/21/23 documented as of this encounter
[2025-06-02 21:31] LABS: Add Urine Microscopic? NO; Appearance Urine Clear (Clear); Glucose Urine UA Negative (Negative); Leukocyte Esterase Ur Negative LEU/UL (Negative); Nitrate Urine Negative (Negative); Specific Grav Ur > 1.045 (1.001-1.035)
[2025-06-02 21:46] LABS: Cannabinoid Screen Urine Negative (Negative)
[2025-06-02] MEDS: ASPIRIN 81 MG CHEWABLE TABLET 324 MG PO (22:37)
[2025-06-02 22:53] LABS: Cholesterol 194 mg/dL (0-200); HDL Direct 30 mg/dL; Triglycerides 222 mg/dL (<150)
[2025-06-02 23:23] VITALS: BP 136/84; PULSE 55; RESP 18; O2SAT 97
[2025-06-03] VITALS (9 sets, daily range): BP systolic 135–155; BP diastolic 78–95; PULSE 55–77; RESP 15–20; TEMP 35.9–36.6; O2SAT 98–100; BMI 29.2
--- NOTE | 2025-06-03 00:16 | WPCEDHO ---
ED Hand Off Checklist All vitals saved:Yes IV Site documented:Yes All med administrations documented:Yes Triage Note Triage Note Patient to ED from Dr. Barahona's 06/02/25 20:10 office for evaluation of possible retinal occlusion. 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 Agree with triage assessment. Allergies No Known Allergies Allergy (Verified 05/26/25 10:22) Administered/Completed Medications Discontinued Medications Aspirin (Aspirin 81 Mg Chewable Tablet) 324 mg PO ONCE STA Stop: 06/02/25 22:25 Last Admin: 06/02/25 22:37 Dose: 324 mg Documented By: RAMYA Interventions/Assessments IV / Saline Lock, Insert Start: 06/02/25 17:41 Freq: Status: Active Protocol: Document 06/02/25 18:58 KLM (Rec: 06/02/25 18:58 [facility] [id number]) IV Assessment Peripheral Access Left Antecubital IV Catheter Access Initiated IV Insertion Date 06/02/25 IV Insertion Time 18:58 Catheter Gauge 18 IV Insertion 1 Attempts IV Site Assessment WNL IV Care and WNL Maintenance PA: HEENT Assessment Start: 06/02/25 17:41 Freq: Status: Active Protocol: Document 06/02/25 20:10 RAMYA (Rec: 06/02/25 20:11 [facility] [id number]) Head and Neck Assessment Left Visual Difficulty Blurred Vision Eye Drainage None Description Lower Eyelid Normal Appearance Upper Eyelid Normal Appearance Conjunctiva Clear/[place] Appearance Sclera Appearance Clear/White Eye Movement Unimpaired Last Vital Signs Temperature 97.6 F 06/02/25 17:43 Pulse Rate 55 L 06/02/25 23:23 Respiratory Rate 18 06/02/25 23:23 Pulse Oximetry 97 06/02/25 23:23 Blood Pressure 136/84 06/02/25 23:23 Blood Pressure Mean 101 06/02/25 23:23 Blood Pressure Position Sitting 06/02/25 17:43 Oxygen Delivery Room Air 06/02/25 17:43 Weight 91.5 kg 06/02/25 20:10 Last Result - Abnormals Only RBC 4.51 M/mm3 (4.6-6.20) L 06/02/25 18:57 Hgb 13.2 g/dL (14.0-18.0) L 06/02/25 18:57 Hct 39.9 % (42.0-52.0) L 06/02/25 18:57 [place] % (Auto) 9.9 % (2.6-8.5) H 06/02/25 18:57 [place] # (Auto) 0.7 K/mm3 (0.1-0.6) H 06/02/25 18:57 BUN 21 mg/dL (9-20) H 06/02/25 18:57 Triglycerides 222 mg/dL (<150) H 06/02/25 18:57 Ur Specific [place] > 1.045 (1.001-1.035) H 06/02/25 21:15 Most Recent Suicide Severity Rating Suicide Severity Rating NO RISK INDICATED 06/02/25 20:10
--- NOTE | 2025-06-03 03:06 | P.HP_ITS ---
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 The patient reports that late on the night of the he suddenly noticed acute loss of vision in his left eye. He reports that it looks like he has a purple [place] covering a portion of his visual field. His plumbing and heating contractor was concerned that he may have a retinal artery occlusion and sent him into the ER for evaluation. He denies any history of prior difficulties with his vision. He does not wear prescription eyeglasses. Visual acuity in the left eye was markedly abnormal compared to the right per ER provider report He reports that his blood pressures usually run and in a 130s systolic range in denies diagnosis of hypertension. He does have a history of low HDL cholesterol and a borderline total cholesterol level that varies depending on his activity level and diet. He was evidently told in the distant past that he was told that he had ?blocked carotid arteries?. He has not had any localizing weakness or difficulties with coordination, his speech is clear, he denies any vertigo. CTA of the head and neck performed in the ER demonstrated no acute intercranial process less than 50% diameter narrowing of bilateral internal carotid arteries, patent vertebral arteries old in no areas of large vessel occlusion. I requested patient receive full-dose aspirin in the ER. The patient's case was discussed with the neurologist on-call who recommended the patient be admitted for MRI evaluation to rule out CVA. If CVA ruled out then the patient could be referred to Ophthalmology for treatment of possible retinal occlusion. The patient reports it has been about 2 years since he cell a primary care physician. He does have an appointment arranged to get established with a new provider in the near future. Review of Systems 2 Review of Systems: 12 systems were reviewed with pertinent positives and negatives per HPI. Except as documented in the HPI, all other systems were reviewed and are negative. [facility] Past Medical History Medical History (Updated 06/03/25 @ 03:18 by Shanae Mclain DO) Prostate cancer Spinal stenosis of lumbar region at multiple levels MRI lumbar spine 08/06/2024 demonstrated multiple E level disc bulges and facet arthropathy with central to right paracentral disc protrusion at L5-S1 resulting in varying degrees of mild to moderate foraminal stenosis at all levels with mild right lateral recess stenosis at L5-S1 Dyslipidemia Neuropathy Surgical History Surgical History (Updated 06/03/25 @ 03:18 by Shanae Mclain DO) Status post medial meniscectomy of right knee History of prostatectomy (2009) History of left inguinal hernia repair (~2017) History of colonoscopy with polypectomy Most recent colonoscopy was 05/26/2025 with reported polypectomy but specimen from the lab only demonstrated fecal material without colonic tissue Family History Family History (Updated 06/03/25 @ 03:32 by Shanae Mclain DO) Father , at 53 heart disease secondary to undiagnosed/treated diabetes Diabetes mellitus Mother Skin cancer Social History Social History (Updated 06/03/25 @ 03:20 by Shanae Mclain DO) Social History: Patient lives with his significant other they have been together for approximately 10 years. 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 He plays tennis to stay active. He is a lifelong nonsmoker and does not drink alcohol or use illicit substances. He has 1 son. Code status: Full code Surrogate decision maker: Josue Ritter (significant other) Smoking status: Never smoker Alcohol intake: never Substance use: never Substance use type: does not use Lack of Transportation: No Lack of Food: Never True Current Housing: I Have Housing Concerned About Future Housing: No Difficulty Paying Gas/Electric Bills: No Difficulty Paying for Meds: No Currently Unemployed: No Education: Master's Degree or Higher Difficulty w/ Childcare or Family Care: No Living arrangements: with family Additional living arrangements comments: with sp Spiritual care concerns: No Meds Home Medications and Allergies Home Medications ?Medication ?Instructions ?Recorded ?Confirmed ?Type No Home Medications 06/03/25 06/03/25 H istory Allergies Allergy/AdvReac Type Severity Reaction Status Date / Time No Known Allergies Allergy Verified 06/03/25 00:53 Vital Signs Vital Signs - 24 hr 06/02/25 17:43 06/02/25 23:23 06/03/25 00:43 Temperature 97.6 F 96.6 F L Pulse Rate 67 55 L 58 L Respiratory Rate 16 18 16 Blood Pressure 157/85 H 136/84 135/78 Pulse Oximetry 100 97 98 Oxygen Delivery Room Air 06/03/25 01:22 Temperature Pulse Rate Respiratory Rate Blood Pressure Pulse Oximetry Oxygen Delivery Room Air Exam 2 Narrative: Weight 92 kg BMI 29.3 Const: Other: Well-developed, well-nourished, appears stated age, no acute distress HENMT: Other: Mucous membranes are moist, good dentition, no oral pharyngeal erythema, head is normocephalic atraumatic Eyes: Other: Pupils initially a left eye was more dilated than the right but with repeat examination pupils were equal, extraocular movements intact, no scleral icterus, no conjunctival pallor Neck: Other: No JVD, no lymphadenopathy Resp: Other: Clear to auscultation bilaterally, no increased work of breathing Cardio: Other: Mildly bradycardic, regular rhythm, 2+ bilateral radia and l pedal pulses, no murmurs GI: Other: Soft, nontender, positive bowel sounds Skin: Other: No jaundice, no pallor Neuro: Other: Alert oriented x4, speech is clear, no facial asymmetry, no dysmetria of upper or lower extremities, decreased visual acuity for ER documentation left eye 20/200 right eye 20 70 visual acuity not repeated at the time of my evaluation, no pronator drift, sensation intact Extrem: Other: 5/5 auto leasing manager strength, 5/5 strength on plant ar and dorsiflexion, no clubbing, cyanosis or edema Psych: Other: Appropriate mood and affect, pleasant and cooperative, judgment and insight intact Results Labs Labs: Laboratory Tests 06/02/25 18:57 06/02/25 18:57 06/02/25 06/02/25 18:57 21:15 WBC 6.7 RBC 4.51 L Hgb 13.2 L Hct 39.9 L MCV 88.5 MCH 29.3 MCHC 33.1 RDW 12.2 Plt Count 189 MPV 10.3 Immature Gran % (Auto) 0.3 Neut % (Auto) 60.5 Lymph % (Auto) 26.7 [place] % (Auto) 9.9 H Eos % (Auto) 2.2 Baso % (Auto) 0.4 Lymph # (Auto) 1.79 [place] # (Auto) 0.7 H Eos # (Auto) 0.2 Baso # (Auto) 0.0 Abs Immat Gran (auto) 0.02 Absolute Neuts (auto) 4.1 Absolute Nucleated RBC 0.000 Nucleated RBC % 0.0 PT 13.4 INR 1.0 APTT 27.4 Sodium 139 Potassium 4.3 Chloride 106 Carbon Dioxide 27 Anion Gap 6 BUN 21 H Creatinine 1.10 Estim Creat Clear Calc 56 Estimated GFR > 60 Glucose 108 Calcium 9.1 Total Bilirubin 0.3 AST 32 ALT 28 Alkaline Phosphatase 76 Total Protein 7.4 Albumin 4.1 Triglycerides 222 H Cholesterol 194 LDL Cholesterol Direct 118 HDL Direct 30 Urine Color Yellow Urine Appearance Clear Urine pH 5.0 Ur Specific [place] > 1.045 H Urine Protein Negative Urine Glucose (UA) Negative Urine Ketones Negative Ur Blood (Man) Negative Urine Nitrate Negative Urine Bilirubin Negative Urine Urobilinogen 0.2 Leukocyte Esterase Rfl Negative Urine Opiates Screen Negative Urine Methadone Screen Negative Ur Barbiturates Screen Negative Ur Phencyclidine Scrn Negative Ur Amphetamine Screen Negative U Benzodiazepines Scrn Negative Urine Cocaine Screen Negative U Cannabinoids Screen Negative Ethyl Alcohol < 10 Impressions Head/Neck CTA 06/02/25 19:43 IMPRESSION: 1. No acute intracranial findings in the precontrast CT scan. 2. Patent vertebral arteries in the neck. Mild atherosclerotic disease producing less than 50% diameter narrowing of the internal carotid arteries on both sides. 3. No obstructive lesions of major arteries of [place]. Dural venous sinuses are patent. EKG:Test Date: 2025-06-02 18:55:34 Measurements Intervals [place] Rate: 66 P: 52 PA: 188 QRS: 46 QRSD: 105 T: 6 QT: 378 QTc: 397 Interpretive Statements SINUS RHYTHM INCOMPLETE RIGHT BUNDLE BRANCH BLOCK MINIMAL Q WAVES- INFERIOR LEADS BASELINE ARTIFACT- I, II, AVR BORDERLINE ECG No previous ECG available for comparison Quality If No VTE Prophylaxis Answer both mechanical and pharmacologic: Reason no mechanical VTE proph: low risk/not indicated (Patient is up and ambulating) Reason no pharmacologic proph: low risk/not indicated (Patient is up and ambulating) Assessment and Plan Assessment and plan (1) Changes in vision: Code(s): H53.9 - Unspecified visual disturbance Status: Acute Plan Patient as acute decreased visual acuity of the left eye with pattern concerning for possible retinal occlusion but CVA cannot be ruled out. Patient is outside the window for tPA even if CVA were improving given his last known well was on the evening of the . Patient has received full-dose aspirin. Will start patient on 81 mg aspirin daily. MRI brain with and without contrast has been ordered. Will order echocardiogram with bubble study. Lipid panel is been ordered. Will monitor neuro checks q.4 hours. Will monitor cardiac rhythm on telemetry to rule out paroxysmal atrial fibrillation which could increase risk of thrombotic event. Neurology has been consulted will await further recommendations. Patient has been admitted as observation status. MEDICAL DECISION MAKING NARRATIVE -Spoke with the ED provider in detail regarding patient's evaluation, workup and management -Patient seen and examined at bedside -Collaborated with patient's nurse at the bedside in detail and addressed all concerns -Labs, electrolytes, radiology, investigations and test results personally reviewed and interpreted unless otherwise specified -ED/Consult/Nursing/Ancilliary notes on the chart reviewed and appreciated -applicable past medical records and labs were reviewed and unless stated otherwise. -Spoke with patient at bedside and diagnosis, plan of care was discussed and questions answered. Hospitalist MIPS Advance Care Plan I have confirmed that the patient's Advanced Care Plan is present, code status is documented, or surrogate decision maker is listed in patient medical record.: Yes Medication Reconciliation I have utilized all available resources to obtain, update and review the patients current medications (includes all prescriptions, OTC, herbals, cannabis, and nutritional supplements).: Yes
--- NOTE | 2025-06-03 06:00 | ECHO_ITS ---
Patient Info Name: Anuj Patrick Age: 70 years : 1955 Gender: Male Ht: 70 in Wt: 201 lbs BSA: 2.14 m2 HR: 65 bpm BP: 166 / 91 mmHg Technical Quality: Fair Exam Date: 06/03/2025 10:42 AM Patient Status: I Admit Date: 06/02/2025 Exam Type: CA echo doppler w bubble study Complete two-dimensional, color flow and Doppler transthoracic echocardiogram is performed with agitated saline. Staff Referring Physician: Ela Campos Auto Slip Cover Installer: Jeronimo Irving III Attending Provider: Shanae Mclain DO Contrast/Agitated Saline Contrast/Ag. Saline: Agitated Saline Amount: 24.00 ml Existing IV Access: Yes IV Access Condition: patent with no signs of infiltration Summary 1. Agitated saline study is negative for [id number] shunt. 2. There is normal biventricular size and systolic function. 3. There are no significant valvular abnormalities. Left Ventricle The left ventricle is normal in size and systolic function. The left ventricular ejection fraction is visually estimated to be 60-65%. Right Ventricle The right ventricle is normal in size and systolic function. Left Atria The left atrium is normal size. Right Atria The right atrium is normal size. Atrial Septum Agitated saline study is negative for [id number] shunt. Aortic Valve The aortic valve is trileaflet and opens well. There is no aortic regurgitation. Pulmonic Valve The pulmonic valve is not well visualized. There is no pulmonic valve regurgitation. Mitral Valve The mitral valve is normal. There is trace mitral regurgitation. Tricuspid Valve The tricuspid valve is normal. There is no tricuspid regurgitation. Pericardium/Pleural Pericardium is normal in appearance with no evidence for significant pericardial effusion. Inferior Vena Cava Normal inferior vena cava with >50% collapse upon inspiration consistent with normal right atrial pressure, 3 mmHg. Aorta The aortic root at the level of the sinus of Valsal[place] measures 3.0 cm in diameter. Left Ventricular Outflow Tract Name Value Normal LVOT 2D LVOT Diameter 2.1 cm LVOT Doppler LVOT Peak Velocity 137 cm/s LVOT Peak Gradient 8 mmHg LVOT Mean Gradient 3 mmHg LVOT VTI 23 cm LVOT VTI/AV VTI Ratio 0.9 LVOT Stroke Volume 85 ml LVOT CO 5.4 l/min LVOT CI 2.5 l/min/m2 Pulmonic Valve Name Value Normal PV Doppler PV Peak Velocity 202 cm/s PV Peak Gradient 16 mmHg PV Mean Gradient 7 mmHg Mitral Valve Name Value Normal MV Doppler MV Peak Gradient 4 mmHg MV Mean Gradient 2 mmHg MV Area (Cont Eq VTI) 2.6 cm2 MV Regurgitation Doppler MR Peak Gradient 39 mmHg MV Diastolic Function MV E Peak Velocity 101 cm/s MV A Peak Velocity 97 cm/s MV E/A 1.0 MV Decel Time (PW) 187 ms MV Annular TDI MV E/e' (Septal) 14.5 MV E/e' (Lateral) 11.3 MV E/e' (Average) 12.9 Tricuspid Valve Name Value Normal Estimated PAP/RSVP RA Pressure 3 mmHg <=5 TV Annular TDI TV Lateral Karly s' Velocity 16.0 cm/s >=9.5 Aortic Valve Name Value Normal AV Doppler AV Peak Velocity 142 cm/s AV Peak Gradient 8 mmHg AV Mean Gradient 4 mmHg AV VTI 26 cm AV Area (Cont Eq VTI) 3.2 cm2 >=3.0 AV Area (Cont Eq Ricardo) 3.5 cm2 AV DI (Ricardo) 0.96 AV Regurgitation 2D LVOT Area 3.6 cm2 Ventricles Name Value Normal LV Dimensions 2D/MM IVS Diastolic Thickness (2D) 0.9 cm 0.6-1.0 LVID Diastole (2D) 4.6 cm 4.2-5.8 LVIW Diastolic Thickness (2D) 1.2 cm 0.6-1.0 LVID Systole (2D) 3.0 cm 2.5-4.0 LVOT Diameter 2.1 cm LV Mass (2D Cubed) 168.73 g 88.00-224.00 LV Mass Index (2D Cubed) 79 g/m2 49-115 Relative Wall Thickness (2D) 0.52 <=0.42 LV Fractional Shortening/Ejection Fraction 2D/MM LV Fractional Shortening (2D) 35 % 25-43 LV EF (2D Teichholz) 64 % LV Diastolic Volume (4C MOD) 74 ml LV EF (4C MOD) 70 % LV Diastolic Volume (2C MOD) 72 ml LV EF (2C MOD) 65 % LV Diastolic Volume (BP MOD) 73 ml 62-150 LV Diastolic Volume Index (BP MOD) 34 ml/m2 34-74 LV Systolic Volume (BP MOD) 24 ml 21-61 LV Systolic Volume Index (BP MOD) 11 ml/m2 11-31 LV EF (BP MOD) 67 % 52-72 LV Diastolic Length (4C) 7.9 cm LV Systolic Length (4C) 5.9 cm LV Stroke Volume (4C MOD) 52 ml Atria Name Value Normal LA Dimensions LA Volume (4C A-L) 49 ml LA Volume (BP A-L) 49 ml RA Dimensions RA Systolic Major [place] Length (4C) 5.5 cm 2.1-2.7 RA Area (4C) 18.2 cm2 <=18.0 Report Signatures
[2025-06-03] MEDS: ASPIRIN 81 MG ENTERIC TABLET PO (09:14)
--- NOTE | 2025-06-03 11:56 | PM.IMPN2 ---
Assessment and Plan Assessment and Plan (1) Changes in vision: Code(s): H53.9 - Unspecified visual disturbance Status: Acute Plan Left eye visual changes noted symptoms still present MRI brain, ECHO, Lipid panel, A1c ordered CTA head and neck unremarkable COntineu ASpirin and Lipitor Neurology consulted from the ER PT/OT/ST remote hx of Prostate ca in remission DVT prophylaxis on Sq Lovenox Full code Subjective Date/time seen: 06/03/25 11:56 Interval history: Comfortable at bedside Still noted left eye visual field disturbance, MRI brain and ECHO pending Review of Systems Review of Systems: 12 systems were reviewed with pertinent positives and negatives per HPI. Except as documented in the HPI, all other systems were reviewed and are negative. Exam Narrative: Weight 92 kg BMI 29.3 Const: Other: Well-developed, well-nourished, appears stated age, no acute distress HENMT: Other: Mucous membranes are moist, good dentition, no oral pharyngeal erythema, head is normocephalic atraumatic Eyes: Other: Pupils initially a left eye was more dilated than the right but with repeat examination pupils were equal, extraocular movements intact, no scleral icterus, no conjunctival pallor Neck: Other: No JVD, no lymphadenopathy Resp: Other: Clear to auscultation bilaterally, no increased work of breathing Cardio: Other: Mildly bradycardic, regular rhythm, 2+ bilateral radia and l pedal pulses, no murmurs GI: Other: Soft, nontender, positive bowel sounds Skin: Other: No jaundice, no pallor Neuro: Other: Alert oriented x4, speech is clear, no facial asymmetry, no dysmetria of upper or lower extremities, decreased visual acuity for ER documentation left eye 20/200 right eye 20 70 visual acuity not repeated at the time of my evaluation, no pronator drift, sensation intact Extrem: Other: 5/5 joiner helper strength, 5/5 strength on plantar and dorsiflexion, no clubbing, cyanosis or edema Psych: Other: Appropriate mood and affect, pleasant and cooperative, judgment and insight intact Objective Data Vital Signs Vital Signs: Vital Signs - 24 hr 06/02/25 17:43 06/02/25 23:23 06/03/25 00:43 Temperature 97.6 F 96.6 F L Pulse Rate 67 55 L 58 L Respiratory Rate 16 18 16 Blood Pressure 157/85 H 136/84 135/78 Pulse Oximetry 100 97 98 Oxygen Delivery Room Air 06/03/25 01:22 06/03/25 04:00 06/03/25 04:32 Temperature 97.2 F L Pulse Rate 55 L 65 Respiratory Rate 15 Blood Pressure 155/91 H Pulse Oximetry 100 Oxygen Delivery Room Air 06/03/25 09:14 Temperature Pulse Rate Respiratory Rate Blood Pressure Pulse Oximetry Oxygen Delivery Room Air Intake/Output Intake/Output: Intake & Output 05/31/25 06/01/25 06/02/25 06/03/25 23:59 23:59 23:59 23:59 Intake Total 358 Balance 358 Meds/Results Medications: Active Medications Generic Name Dose Route Start Last Admin Trade Name Freq PRN Reason Stop Dose Admin Acetaminophen 650 mg 06/02/25 22:40 Acetaminophen 325 Mg Tablet PO Q4H PRN Mild Pain (1-3) or Fever Aspirin 81 mg 06/03/25 09:00 06/03/25 09:14 Aspirin 81 Mg Enteric Tablet PO 81 mg QAM [facility] Administration Buspirone HCl 5 mg 06/03/25 10:50 Buspirone Hcl 5 Mg Tablet PO Q12HR [facility] Diazepam 5 mg 06/03/25 06:33 Diazepam Inj (*Crx) 10 Mg/2 Ml Syringe IV PUSH ONCE PRN Prior to MRI Perflutren Lipid Microsphere 0 ml 06/02/25 22:40 Perflutren Lipid Microspheres 1.5 Ml Vial Diluted To 10 Ml Total Volume IV PUSH 06/05/25 22:41 ONCE PRN adequate visualization Protocol Radiology Results: ITS Impressions Head/Neck CTA 06/02/25 19:43 IMPRESSION: 1. No acute intracranial findings in the precontrast CT scan. 2. Patent vertebral arteries in the neck. Mild atherosclerotic disease producing less than 50% diameter narrowing of the internal carotid arteries on both sides. 3. No obstructive lesions of major arteries of [place] of [place]. Dural venous sinuses are patent. Labs Labs: Laboratory Results - last 24 hr 06/02/25 06/02/25 18:57 21:15 WBC 6.7 RBC 4.51 L Hgb 13.2 L Hct 39.9 L MCV 88.5 MCH 29.3 MCHC 33.1 RDW 12.2 Plt Count 189 MPV 10.3 Immature Gran % (Auto) 0.3 Neut % (Auto) 60.5 Lymph % (Auto) 26.7 [place] % (Auto) 9.9 H Eos % (Auto) 2.2 Baso % (Auto) 0.4 Lymph # (Auto) 1.79 [place] # (Auto) 0.7 H Eos # (Auto) 0.2 Baso # (Auto) 0.0 Abs Immat Gran (auto) 0.02 Absolute Neuts (auto) 4.1 Absolute Nucleated RBC 0.000 Nucleated RBC % 0.0 PT 13.4 INR 1.0 APTT 27.4 Sodium 139 Potassium 4.3 Chloride 106 Carbon Dioxide 27 Anion Gap 6 BUN 21 H Creatinine 1.10 Estim Creat Clear Calc 56 Estimated GFR > 60 Glucose 108 Calcium 9.1 Total Bilirubin 0.3 AST 32 ALT 28 Alkaline Phosphatase 76 Total Protein 7.4 Albumin 4.1 Triglycerides 222 H Cholesterol 194 LDL Cholesterol Direct 118 HDL Direct 30 Urine Color Yellow Urine Appearance Clear Urine pH 5.0 Ur Specific [place] > 1.045 H Urine Protein Negative Urine Glucose (UA) Negative Urine Ketones Negative Ur Blood (Man) Negative Urine Nitrate Negative Urine Bilirubin Negative Urine Urobilinogen 0.2 Leukocyte Esterase Rfl Negative Urine Opiates Screen Negative Urine Methadone Screen Negative Ur Barbiturates Screen Negative Ur Phencyclidine Scrn Negative Ur Amphetamine Screen Negative U Benzodiazepines Scrn Negative Urine Cocaine Screen Negative U Cannabinoids Screen Negative Ethyl Alcohol < 10
[2025-06-03] MEDS: diazePAM INJ (*CRX) 10 MG/2 ML SYRINGE 5 MG IV PUSH (16:21)
[2025-06-04] VITALS: PULSE 50
[2025-06-04 04:00] VITALS: PULSE 53
[2025-06-04 05:44] VITALS: BP 139/77; PULSE 66; RESP 16; TEMP 36.3; O2SAT 98
[2025-06-04 06:19] LABS: Hematocrit 40.4 % (42.0-52.0); Hemoglobin 13.7 g/dL (14.0-18.0); Immature Granulocyte Percent A 0.3 % (0-0.5); Lymphocytes Absolute Auto 1.78 K/mm3 (0.9-3.2); Mean Corpuscular HGB Conc 33.9 g/dl (32-36); Mean Corpuscular Hemoglobin 29.5 pg (26-34); Mean Corpuscular Volume 87.1 fl (80-100); Nucleated Red Blood Cells Absolute Auto 0.000 K/mm3 (0.0-0.012); Nucleated Red Blood Cells Perc 0.0 % (0.0-0.2); Platelet Count Result 184 k/mm3 (150-375); Red Blood Count 4.64 M/mm3 (4.6-6.20); White Blood Count 7.4 K/mm3 (4.5-10.0)
[2025-06-04 06:39] LABS: Alanine Aminotransferase 25 U/L (6-50); Albumin Level 4.0 g/dL (3.5-5.1); Alkaline Phosphatase 82 U/L (38-126); Anion Gap 3 mmol/L (4-12); Aspartate Amino Transferase 27 U/L (17-59); Bilirubin,Total 0.8 mg/dL (0.2-1.3); Blood Urea Nitrogen 16 mg/dL (9-20); Calcium 9.1 mg/dL (8.4-10.2); Carbon Dioxide 29 mmol/L (22-30); Chloride 107 mmol/L (98-107); Cholesterol 206 mg/dL (0-200); Estimated CRCL calculation 58 ml/min; Estimated Glomerular Filt Rate > 60; Glucose 95 mg/dL (65-110); HDL Direct 28 mg/dL; Magnesium 2.0 mg/dL (1.6-2.3); Potassium 4.1 mmol/L (3.4-5.0); Sodium 139 mmol/L (137-145); Total Protein 7.3 g/dL (6.3-8.2); Triglycerides 175 mg/dL (<150)
[2025-06-04 07:06] LABS: Hemoglobin A1C 5.5 % (<5.7)
[2025-06-04 08:00] VITALS: PULSE 58
[2025-06-04] MEDS: ASPIRIN 81 MG ENTERIC TABLET PO (09:46)
[2025-06-04] MEDS: ATORVASTATIN 40 MG TABLET PO (09:46)
--- NOTE | 2025-06-04 10:16 | P.DS_ITS ---
DS: Admitting Diagnosis Discharge Date 06/04/2025 Admitting Diagnosis left eye visual changes DS: Discharge Diagnosis Discharge Diagnosis (1) Stroke: Code(s): I63.9 - Cerebral infarction, unspecified Status: Acute DS: Summary Hospital Course Hospital Course: Hospital Course History of Present Illness: 70-year-old male with a history of dyslipidemia, remote prostate cancer (s/p prostatectomy, in remission), lumbar spinal stenosis, and neuropathy presented with sudden onset of decreased vision in the left eye, described as a purple cloud obscuring part of his visual field. Symptoms began late evening of 06/01/25. 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 He denied prior visual disturbances, focal weakness, speech changes, or vertigo. He does not wear corrective lenses. No recent trauma or similar events. ER eval CTA head and neck, EKG showed no acute changes and neurology was consulted, ECHO showed normal biVentricular function. MRI showed very small acute lacunar infarct in the left lentiform nucleus, also showed non specific 3 mm focus of enhancement in the kraus matter the deep margin of a sulcus in the left parieto- occipital region. I discussed this findings with Dr Love who recommended discharging patient on Aspirin and Lipitor, with 21 days of Plavix and patient will follow up with Dr Dwyer next week. LDL 125, A1c 5.5. 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 * Persistent left eye visual field deficit. * No new focal neurological deficits. * Ambulating independently. Follow-Up Appointments * Neurology: Call Dr Dwyer's office for follow up next week * Ophthalmology: Continue follow up with Ophthalmology as scheduled today * Primary Care: F/u in 3-5 days Time Spent with Patient Time attestation: Total time spent providing and/or coordinating discharge services: DS: Data Data Completed and Pending Labs on day of discharge: Labs from last 24 hours 06/04/25 06:10 WBC 7.4 RBC 4.64 Hgb 13.7 L Hct 40.4 L MCV 87.1 MCH 29.5 MCHC 33.9 RDW 12.1 Plt Count 184 MPV 10.1 Immature Gran % (Auto) 0.3 Neut % (Auto) 63.1 Lymph % (Auto) 23.9 Greer % (Auto) 9.9 H Eos % (Auto) 2.0 Baso % (Auto) 0.8 Lymph # (Auto) 1.78 Greer # (Auto) 0.7 H Eos # (Auto) 0.2 Baso # (Auto) 0.1 Abs Immat Gran (auto) 0.02 Absolute Neuts (auto) 4.7 Absolute Nucleated RBC 0.000 Nucleated RBC % 0.0 Sodium 139 Potassium 4.1 Chloride 107 Carbon Dioxide 29 Anion Gap 3 L BUN 16 Creatinine 1.06 Estim Creat Clear Calc 58 Estimated GFR > 60 Glucose 95 Hemoglobin A1c 5.5 Calcium 9.1 Magnesium 2.0 Total Bilirubin 0.8 AST 27 ALT 25 Alkaline Phosphatase 82 Total Protein 7.3 Albumin 4.0 Triglycerides 175 H Cholesterol 206 H LDL Cholesterol Direct 125 HDL Direct 28 Discharge Plan Discharge Attending physician on discharge: Edin Yates Consulting providers: Michael Love Discharging Clinician: Edin Yates Anticipated Discharge Date/Time: 06/04/25 10:12 Patient Disposition: Home Activity: as tolerated Diet: as tolerated and heart healthy Discharge Instructions: Call Dr Dwyer's office for follow up appointment Patient Instructions: Antibiotic Form Patient Language: Cymro Stand Alone Forms: General Discharge Information Follow-up/Referrals: Roxie Dwyer MD [Physician, Neurology] Referral Note: F/u with neurology in 1-2 weeks Nora,Lucinda Clark, NICOLA [Primary Care Provider, Unknown] Referral Note: F/u with PCP in 3-5 days Discharge Medications: New atorvastatin 40 mg Tablet 40 mg PO DAILY 30 Days Qty: 30 1RF aspirin 81 mg Tablet,Delayed Release (Dr/Ec) 81 mg PO QAM 30 Days Qty: 30 1RF clopidogrel [Plavix] 75 mg tablet 75 mg PO DAILY 21 Days Qty: 21 0RF Date of admission: 06/02/25 22:40 Primary Care Provider: Nora,Lucinda Clark Admitting Provider: Shanae Mclain Attending physician on admission: Shanae Mclain Condition: Stable
== END 2025-06-04 10:25 | disposition home or self-care (01) ==
LOC: ANHED 22:40 → ANH3MEDSUR 06-03 15:11
PROVIDERS: Admitting Provider Internal Medicine; Emergency Provider Registered Nurse; PCP Nurse Practitioner; Visit Provider Internal Medicine
DX: I63.9 Cerebral infarction, unspecified (principal); E78.5 Hyperlipidemia, unspecified; Z85.46 Personal history of malignant neoplasm of prostate; Z90.79 Acquired absence of other genital organ(s); M48.061 Spinal stenosis, lumbar region without neurogenic claudication; Z83.3 Family history of diabetes mellitus
CPT/HCPCS: 36415; 70496; 70498; 70553; 80053; 80061; 80307; 81003; 82077; 83036; 83735; 85025; 85610; 85730; 92523; 93005; 93306; 96375; 97161; 99285; A9270; A9577; G0378; J3360; Q9967